=== PATIENT | female | born 1980 | race Caucasian/White ===

== ENCOUNTER → 2016-10-22 | Outpatient (CLI) | payer BC ==
[~2016-10-22] MED LIST: A-F BETAFOOD PO; HYDROCODON-ACE1 EAC4 PO; JOLESSA 0.15 M1 EACH PO; TYLENOL DPS325 MG PO
== END | disposition home or self-care (01) ==
LOC: RAD.S 10-21 14:00
DX: N93.9 Abnormal uterine and vaginal bleeding, unspecified (principal)

== ENCOUNTER 2016-10-26 21:28 | Inpatient (IN) | payer BC ==
[~2016-10-26] VITALS: Ht 166.4 cm; Wt 97.9 kg
--- NOTE | ~2016-10-26 | FD ---
ADMIT: 10/26/2016 RM/LOC: 633 [facility] MR#: [id number] [address] [address] PRAKASH SALCEDO [address] [place] [address] Final Diagnosis SEX: F AGE: 36 : 1980 ADMISSION DATE: 10/26/2016 DISCHARGE DATE: 10/28/2016 FINAL DIAGNOSIS: 1. Cholelithiasis. 2. Appendicolith. PROCEDURE: Laparoscopic appendectomy and cholecystectomy. MADDI Lr / Lucien Lopez MD / pau JOB #: [id number] CC: Lucien Lopez MD, Attending Physician Lucien Lopez MD, Family Physician
--- NOTE | 2016-10-27 06:48 | ER ---
ADMIT: 10/26/2016 RM/LOC: 633 [facility] MR#: [id number] [address] [address] ANT SALCEDOYENY Weir [address] [place] [address] Emergency Room Report SEX: F AGE: 36 : 1980 DATE: CHIEF COMPLAINT: Abdominal pain. HISTORY OF PRESENT ILLNESS: The patient is a 36-year-old female with biliary colic for the past 25 days with negative nuclear biliary scan. CT scan showed gallstones without dilated ducts, nonobstructive kidney stones, and appendicolith. States that she has had increasing pain with any kind of eating associated with nausea and vomiting today. Denies any fevers, chills, diarrhea, or urinary symptoms. PAST MEDICAL HISTORY: ILLNESSES: Gallbladder disease. OPERATIONS: Left ACL. ALLERGIES: NONE. MEDICATIONS: BCP. REVIEW OF SYSTEMS: A 12-point review of systems negative for all other systems, illnesses, or operations except as outlined above. PHYSICAL EXAMINATION: VITAL SIGNS: Temperature 98.6, pulse 65, respirations 20, BP 154/92, and SaO2 of 99%. GENERAL: Nontoxic, acutely uncomfortable afebrile female. No evidence of jaundice or icterus. HEENT: Normocephalic. No evidence of epistaxis, rhinorrhea, or otorrhea. NECK: Supple without lymphadenopathy or thyromegaly. CHEST: Clear. Breath sounds equal. HEART: Regular rate and rhythm without murmur, gallop, or edema. ABDOMEN: Soft, slightly obese, tender epigastrium, right upper quadrant without mass or megaly. Bowel sounds hypoactive. BACK: No CVA tenderness. EXTREMITIES: No evidence of Homans sign, synovitis, or dermatitis. NEUROLOGIC: EOMI. PERRLA. No evidence of drift, dysarthria, or ataxia. GAIT: Normal. MENTAL STATUS: Alert, oriented, and cooperative without delusions, hallucinations, or abnormal thought content. MEDICAL DECISION MAKING: Ultrasound shows 2.3 cm lodged gallbladder neck ADMIT: 10/26/2016 RM/LOC: 633 [facility] MR#: [id number] [id number] [address] PRAKASH SALCEDO [address] [place] [address] Emergency Room Report SEX: F AGE: 36 : 1980 stone with positive Haque sign, no dilated bile ducts, pericolic fluid, or thickened gallbladder wall noted. Normal CBC, CMP, lactic acid, and lipase. CRP elevated at 1.67. HCG negative. UA negative. The patient was given normal saline, Zofran, Toradol, Dilaudid, Protonix with complete relief of pain. Discussed findings with Dr. Lopez, who agreed to admit and gave orders to nursing staff. DIAGNOSIS: Acute cholecystitis associated with large gallbladder neck stone. RECOMMENDATION: Admit inpatient Med/Surg for Dr. Lopez. ADMISSION/DISCHARGE CONDITION: Stable. The patient is a full code. Prosper Kelly MD/ theodorel JOB #: [id number] CC: Lucien Lopez MD, Attending Physician Lucien Lopez MD, Family Physician
[2016-10-29] MEDS ORDERED: JOLESSA 0.15 M1 EACH PO (10:02)
[2016-10-29] MEDS ORDERED: TYLENOL DPS325 MG PO (10:03)
[2016-10-29] MEDS ORDERED: A-F BETAFOOD PO (10:03)
[2016-10-29] MEDS ORDERED: HYDROCODON-ACE1 EAC4 PO (10:03)
--- NOTE | 2016-10-30 10:29 | HP ---
ADMIT: 10/26/2016 RM/LOC: 633 [facility] MR#: [id number] [address] [address] PRAKASH SALCEDO [address] [place] [address] History and Physical SEX: F AGE: 36 : 1980 DATE OF SERVICE: CHIEF COMPLAINT: Abdominal pain. HISTORY OF PRESENT ILLNESS: Prakash is a very pleasant, 36-year-old female, who states that she has had on and off abdominal pain for the last three weeks. Originally it started in her right lower quadrant of her abdomen, but since then has moved to her right upper quadrant. She has also experienced nausea with this and had a couple times emesis. The pain also radiates to her right flank and right back. She has seen Dr. Meraz a couple times for these symptoms and actually has had an appointment set up with Dr. Garg next week. However, due to the exacerbation of her symptoms last night, she came in through the Emergency Department. She denies any hematemesis, dark or bloody stools, diarrhea, or constipation. Previous workup prior to this hospital stay has revealed a rather large stone in her gallbladder and a fecalith, but however a normal HIDA scan. PAST MEDICAL HISTORY: No significant history. PAST SURGICAL HISTORY: Left ACL repair. ALLERGIES: NO KNOWN DRUG ALLERGIES. MEDICATIONS: control and [id number] supplements. FAMILY HISTORY: The patient reports her mom had her gallbladder out about six years ago. SOCIAL HISTORY: Occasional alcohol user, but denies tobacco or illicit drug use. REVIEW OF SYSTEMS: CONSTITUTIONAL: The patient denies any fever, chills, or night sweats. The rest of comprehensive 10-point review of systems was performed and all other systems are negative. PHYSICAL EXAMINATION: GENERAL: The patient is in no acute distress. She is alert and oriented. HEENT: Head is normocephalic and atraumatic. EOMS are intact. Conjunctivae free of icterus, erythema, or pallor. Pinnae, free of deformities. Nose, midline. No tracheal deviation. NECK: Supple. SKIN: Negative for jaundice, clubbing, edema, pallor, or cyanosis. LUNGS: Normal respiratory effort. Clear to auscultation bilaterally. HEART: Regular rate and rhythm. No murmurs noted. Distal pulses intact. ABDOMEN: Soft, nondistended, negative McBurney point tenderness. Negative Rovsing sign. Pain in right upper quadrant radiating to epigastrium and right flank and right back. Positive Haque's sign. LABORATORY DATA: Overall, grossly normal. ADMIT: 10/26/2016 RM/LOC: 633 [facility] MR#: [id number] [id number] [address] PRAKASH SALCEDO [address] [place] [address] History and Physical SEX: F AGE: 36 : 1980 DIAGNOSTIC IMAGING: Ultrasound of abdomen revealed a large stone in the neck of the gallbladder consistent with prior imaging. ASSESSMENT: 1. Cholelithiasis. 2. A fecalith. PLAN: Given the clinical presentation of the patient and ultrasound findings indicative of cholelithiasis, I will have the patient set up to undergo a laparoscopic possible open cholecystectomy performed by Dr. Lopez later this morning. I have gone through the risks, benefits, and alternatives of surgery with the patient to which she is in agreement of this plan, had all her questions answered, and would like to proceed. There is also possibility of while being in the abdomen to take her appendix as well. However, I will leave that to the discretion of Dr. Lopez. So far, the patient is n.p.o. and so I will get her consented and get her preop antibiotic on board prior to surgical incision time. MADDI Lr / Lucien Lopez MD / ute JOB #: [id number] CC: Lucien Lopez MD, Attending Physician Lucien Lopez MD, Family Physician
--- NOTE | 2016-11-21 12:20 | HP ---
ADMIT: 10/26/2016 RM/LOC: 633 [facility] MR#: [id number] [address] [address] SALCEDO PRAKASH M [address] [place] [address] History and Physical SEX: F AGE: 36 : 1980 DATE OF SERVICE: ADDENDUM: Patient has been seen and examined by myself as well. Nothing else different or unusual. The plan is to proceed with laparoscopic cholecystectomy. We are also going to do a laparoscopic appendectomy at the same time for the above reasons and the appendicolith found on CT scan. All this has been discussed with her, risks, benefits, possible complications, and alternatives. I performed physical exam as well. Lucien Lopez MD/ ajf JOB #: [id number] CC: Lucien Lopez MD, Attending Physician Lucien Lopez MD, Family Physician
--- NOTE | 2016-11-21 12:20 | OR ---
ADMIT: 10/26/2016 RM/LOC: 633 [facility] MR#: [id number] [address] [address] ANT SALCEDOYENY Weir [address] [place] [address] Operative/Delivery Room Report SEX: F AGE: 36 : 1980 SURGERY DATE: 10/27/2016 SURGEON: Lucien Lopez MD PREOPERATIVE DIAGNOSES: Acute cholecystitis and possible early appendicitis with appendicolith. POSTOPERATIVE DIAGNOSES: Acute cholecystitis and possible early appendicitis with appendicolith. FINAL PATHOLOGY: Pending. PROCEDURES: 1. Laparoscopic cholecystectomy. 2. Laparoscopic appendectomy. ANESTHESIA: General endotracheal tube anesthesia. ESTIMATED BLOOD LOSS: 30 mL or less. SPECIMEN: 1. Gallbladder. 2. Appendix to path. INDICATION FOR PROCEDURE: Please see my H and P. PROCEDURE IN DETAIL: After the risks, benefits, possible complications, and the alternatives have been explained, and informed consent had been obtained, the patient was taken back to the operating room, underwent general endotracheal tube anesthesia, and the surgical field was prepped and draped in a sterile manner. An infraumbilical incision made, the Veress needle was inserted. The abdomen was insufflated with CO2. Once there was adequate insufflation, a 5 mm port was placed. Camera was placed through this port site. Under direct visualization, I placed a 10 mm epigastric port and two 5 mm right upper quadrant ports. The gallbladder was grasped, raised superiorly and anteriorly. It definitely had adhesions on it. These were all slowly cleaned out. There was a good sized stone stuck right at the neck of the gallbladder obstructing things. I ended up having to drain the gallbladder and it looked like kind of little emphysematous type of changes to the bile. Dissected out the cystic duct and cystic artery. They were clipped proximally, distally, and divided. The gallbladder was then slowly removed from the liver bed using electrocautery and EndoShears, placed in EndoCatch bag and removed through the epigastric port site. Irrigated and removed as much irrigation as possible. The clips appeared in good position. Liver appeared dry. I then, because of the appendicolith and questioned at one point in the last week or so of appendicitis, I started looking for the appendix and I ultimately had to put a suprapubic 5 mm port in. Her appendix was super difficult. She had a little bit of an extraperitoneal fold coming over the cecum and appendix and ADMIT: 10/26/2016 RM/LOC: 633 [facility] MR#: [id number] [address] [address] PRAKASH SALCEDO [address] [place] [address] Operative/Delivery Room Report SEX: F AGE: 36 : 1980 it took a lot of work to free that up and once it was kind of all freed up here, popped out the appendix and it did appear somewhat injected with an appendicolith in it. I made a window in the mesoappendix, came across the base of mesoappendix with a couple loads of the Endo THIEN stapler. It was placed in another EndoCatch bag and removed through the epigastric port site that I had to enlarge to get my stapler through. Once this was done, I irrigated everything thoroughly, inspected the staple lines there. The gallbladder fossa and everything appeared dry. I injected 0.5% Marcaine in the incision sites for pain control. I closed the fascia of the epigastric port site with a suture passer, and a suture and then all the ports were removed and the skin was all closed with 4-0 Monocryl. She tolerated it well. She was extubated and taken to recovery room in stable and satisfactory condition. Lucien Lopez MD/ ute JOB #: [id number] CC: Lucien Lopez MD, Attending Physician Lucien Lopez MD, Family Physician
== END 2016-10-28 09:15 | disposition home or self-care (01) | DRG 419 ==
LOC: ER 21:28 → 6PED 22:52
PROVIDERS: ADMIT Surgery
DX: K80.00 Calculus of gallbladder with acute cholecystitis without obstruction (principal); K37 Unspecified appendicitis; K38.1 Appendicular concretions